=== PATIENT | female | born 1965 | race Two or more races ===

== ENCOUNTER 2024-09-08 15:03 | Emergency (ER) | payer BC, OTHER ==
[~2024-09-08] VITALS: Ht 165.1 cm; Wt 66.6 kg
--- NOTE | 2024-09-08 15:39 | ED.PDOC ---
History of Present Illness HPI Comments 59F presents to the ER w/ the c/c of a fall, N/V, Burning sensation during urination. Pt reports on having a fall on Tuesday and had upper back pain, and saw her PCPand was told that she was okay. Pt states on having N/V since this morning of 2 episodes and lower ABD pain w/ burning sensation during urination. Pt complains of chills and body aches as well. Denies chills, fever, /D, SOB, CP. No other associated symptoms, modifiers, recent injuries or sick contacts present at this time. Vital signs were stable on arrival. Chief Complaint: Abdominal Pain Time Seen by MD: 15:25 Primary Care Provider: NONE Reviewed Notes: Nurses Notes, Medications, Allergies Allergies: Coded Allergies: NO KNOWN ALLERGIES (Unverified , 09/08/24) Information Source: Patient Mode of Arrival: Ambulatory Severity: Moderate Timing: Days Duration: Since onset, Days Prehospital treatment: None Past Medical History PAST MEDICAL HISTORY: Denies Surgical History: Denies all surgeries SCOOP DRIVER History: No Pertinent SCOOP DRIVER History Family History Family History: Reviewed,noncontributory to illness, Unknown Social History Smoker: Non-Smoker Alcohol: Denies ETOH Use Drugs: Denies Drug Use Lives In: Home Constitutional: reports: chills; denies: diaphoresis, fatigue, fever, malaise, sweats, weakness, others EENTM: denies: blurred vision, double vision, ear bleeding, ear discharge, ear drainage, ear pain, ear ringing, eye pain, eye redness, hearing loss, mouth pain, mouth swelling, nasal discharge, nose bleeding, nose congestion, nose pain, photophobia, tearing, throat pain, throat swelling, voice changes, others Respiratory: denies: cough, hemoptysis, orthopnea, SOB at rest, shortness of breath, SOB with excertion, stridor, wheezing, others Cardiovascular: denies: chest pain, dizzy spells, diaphoresis, Dyspnea on exertion, edema, irregular heart beat, left arm pain, lightheadedness, palpitations, PND, syncope, others Gastrointestinal: reports: abdominal pain, nausea, vomiting; denies: abdomen distended, blood streaked bowels, constipated, diarrhea, dysphagia, difficulty swallowing, hematemesis, melena, poor appetite, poor fluid intake, rectal bleeding, rectal pain, others Genitourinary: reports: burning; denies: abnormal vagina bleeding, dyspareunia, dysuria, flank pain, frequency, hematuria, incontinence, pain, , vagina discharge, urgency, others Neurological: denies: dizziness, fainting, headache, left sided numbness, left sided weakness, numbness, paresthesia, pre-existing deficit, right sided numbness, right sided weakness, seizure, speech problems, tingling, tremors, weakness, others Musculoskeletal: denies: back pain, gout, joint pain, joint swelling, muscle pain, muscle stiffness, neck pain, others Integumetry: denies: bruises, change in color, change in hair/nails, dryness, laceration, lesions, lumps, rash, wounds, others Allergic/Immunocompromised: denies: Difficulty Healing, Frequent Infections, Hives, Itching, others Hematologic/Lymphatic: denies: anemia, blood clots, easy bleeding, easy bruising, swollen glands, others Endocrine: denies: excessive hunger, excessive sweating, excessive thirst, excessive urination, flushing, intolerance to cold, intolerance to heat, unexplained weight gain, unexplained weight loss, others Psychiatric: denies: anxiety, bipolar disorder, depression, hopeless, panic disorder, schizophrenia, sleepless, suicidal, others All Other Systems: Reviewed and Negative Physical Exam General Appearance: Moderate Distress ([id number] distress due to urinary discomfort and nausea), Normal HEENT: Normal ENT Inspection, Pharynx Normal, TMs Normal Neck: Full Range of Motion, Non-Tender, Normal, Normal Inspection Respiratory: Chest Non-Tender, Lungs Clear, No Accessory Muscle Use, No Respiratory Distress, Normal Breath Sounds Cardiovascular: No Edema, No JVD, No Murmur, No Gallop, Normal Peripheral Pulses, Regular Rate/Rhythm Breast Exam: Deferred Gastrointestinal: No Pulsatile Mass, Normal Bowel Sounds, Soft, Other (Mild diffuse tenderness to palpation bilaterally through lower abdominal/pelvic region. Mild suprapubic tenderness.) Genitalia: Deferred Pelvic: Deferred Rectal: Deferred Extremities: No calf tenderness, Normal capillary refill, Normal inspection, Normal range of motion, Non-tender, No pedal edema Musculoskeletal : Apperance: Normal Neurologic: Alert, No Motor Deficits, Normal Affect, Normal Mood, No Sensory Deficits Cerebellar Function: Normal Reflexes: Normal Skin: Dry, Normal Color, Warm Lymphatic: No Adenopathy Was a procedure done? Was a procedure done?: No Differential Dx Considerations may include: UTI, COVID-19, influenza, viral illness X-Ray, Labs, Meds, VS Vital Signs Date Time Temp Pulse Resp B/P (MAP) Pulse Ox O2 Delivery O2 Flow Rate FiO2 09/08/24 15:25 98.6 86 18 149/62 (91) 92 98.6 Lab Test 09/08/24 15:23 09/08/24 15:20 Range/Units Influenza Type A Antigen Negative Negative Influenza Type B Antigen Negative Negative SARS-CoV-2 Antigen (Rapid) Negative NEGATIVE Urine Color Colorless Yellow Urine Clarity Turbid H Clear Urine pH 7.0 5.0-9.0 Urine Specific [place] 1.026 1.001-1.035 Urine Protein Negative Negative Urine Ketones Negative Negative Urine Blood Trace H Negative /uL Urine Nitrite Negative Negative Urine Bilirubin Negative Negative Urine Urobilinogen Normal Negative mg/dL Urine Leukocyte Esterase 3+ Negative /uL Urine RBC 4 0 - 4 /hpf Urine Microscopic WBC 164 H 0-5 /HPF Urine Squamous Epithelial Cells Few <5 /hpf Urine Bacteria Few H None Seen /hpf Urine Glucose 4+ H Normal mg/dL X-Ray, Labs, Meds, VS Comment All studies performed at the ED today were evaluated by me personally. Swabs studies were unremarkable for COVID or influenza, but urinalysis confirmed a large urinary tract infection. Patient was given a dose of Cipro at discharge. Patient has been advised to utilize antibiotics as directed until completion as well as additional medication as needed. Good hydration and healthy nutrition throughout. Time of 1ST Reevaluation: 16:39 Reevaluation 1ST: Improved Consultation: PCP Patient Education/Counseling: Diagnosis, Treatment, Prognosis Family Education/Counseling: Diagnosis, Treatment, No Family Present Departure 1 Departure Time of Disposition: 16:39 Impression: Primary Impression: Urinary tract infection Disposition: 01 HOME / SELF CARE / HOMELESS Condition: Stable Additional Instructions: Advised patient utilize antibiotics as directed until completion as well as a dditional medication as needed. Patient should practice good hydration and healthy nutrition throughout illness event. e-Prescriptions Acetaminophen (Acetaminophen) 500 Mg Tab 500 MG PO Q4HP PRN, #20 TAB Prov: HARLAN HAN PAC 09/08/24 Ondansetron Odt 4MG Tab (ZOFRAN PO) 4 Mg Tb 4 MG PO Q6HP PRN, #10 TAB ODT TAB-DISSOLVE IN MOUTH, THEN SWALLOW Prov: HARLAN HAN PAC 09/08/24 Ciprofloxacin Hcl (Cipro) 500 Mg Tab 1 TAB PO BID for 7 Days, #14 TAB Prov: HARLAN HAN PAC 09/08/24 Discharged With: Self, Friend Critical Care Note Critical Care Time?: No Stability Stability form required: No Heart Score Heart Score: Heart Score Response (Comments) Value History N/A 0 EKG N/A 0 Age N/A 0 Risk Factors N/A 0 Troponin N/A 0 Total 0 I personally scribed for HARLAN HAN PAC ([email or web address]) on 09/08/24 at 15:39. Electronically submitted by Grzegorz Capps ([email or web address]). HARLAN HAN PAC Sep 08, 2024 15:39
[2024-09-08 15:53] LABS: Urine Bacteria FEW /hpf (None Seen); Urine Blood TRACE /uL (Negative); Urine Clarity Turbid (Clear); Urine Color Colorless (Yellow); Urine Protein, UAD Negative (Negative); Urine Specific Gravity 1.026 (1.001-1.035); Urine Squamous Epithelial Cell FEW /hpf (<5); Urine Urobilinogen Normal (Negative); Urine WBC 164 /HPF (0-5)
[2024-09-08 15:55] LABS: COVID19 ANTIGEN SOFIA FIA NEGATIVE (NEGATIVE); Rapid Influenza A Negative (Negative); Rapid Influenza B Negative (Negative)
--- NOTE | 2024-09-08 16:12 | DVH ---
CLINICAL INDICATION: Fall/trauma TECHNIQUE: 3 radiographic views of the cervical spine were obtained. Comparison: None FINDINGS/IMPRESSION: There is no evidence of acute fracture or dislocation. The visualized joint space is well maintained. Mild straightening of the normal cervical lordotic curve. This may be secondary to patient positionin g or muscle spasm.. There is no radiopaque foreign body.
[2024-09-08] MEDS: ACETAMINOPHEN 325 MG TAB PO ONE (16:38)
[2024-09-08] MEDS: ONDANSETRON ODT 4 MG TAB PO ONE (16:38)
[2024-09-08] MEDS ORDERED: ZOFR4T PO (16:40)
[2024-09-08] MEDS ORDERED: CIPR-173 PO (16:40)
[2024-09-08] MEDS ORDERED: ACET500T58 PO (16:40)
[2024-09-08 16:42] VITALS: BP 115/68; PULSE 82; RESP 16; TEMP 98.3; O2SAT 95
[2024-09-08] MEDS: CIPROFLOXACIN HCL 500 MG TAB PO ONE (16:46)
== END 2024-09-08 16:54 | disposition home or self-care (01) ==
LOC: ER 15:03
DX: N39.0 Urinary tract infection, site not specified (principal); Z20.822 Contact with and (suspected) exposure to COVID-19
CPT/HCPCS: 36415; 72040; 81001; 87426; 87804; 99284; Q0162

== ENCOUNTER 2024-09-09 12:21 | Inpatient (IN) | payer BC ==
[~2024-09-09] VITALS: Ht 165.1 cm; Wt 70.0 kg
[~2024-09-09 12:21] MED LIST: ACET500T58 PO; CIPR-173 PO; ZOFR4T PO
[2024-09-09] MEDS: SODIUM CHLORIDE 0.9% 1,000 ML IV ONE (12:30)
--- NOTE | 2024-09-09 12:32 | ED.PDOC ---
General HPI Comments 59 y.o female with PMHx of hyperlipidemia and DM, presents to the ED via EMS for a chief complaint of a fever associated with chills, dysuria, nausea, and vomiting that started 3 days ago. EMS reports patient was seen at this ED last night for same complaint and was diagnosed with a UTI and prescribed medication with discharge status. Patient states she started taking medications, symptoms have worsened and now has SOB that started today. Patient denies any hematuria, bloody stool, diarrhea. EMS administrated 200cc mL IVF and 4mg of Zofran en route brining temperature from a 104.3 F to a 99F upon ED arrival. Time Seen by MD: 12:19 Primary Care Provider: n/a Reviewed notes: Nurses Notes, Philanthropy Officer Notes, Medications, Allergies Allergies: Coded Allergies: NO KNOWN ALLERGIES (Unverified , 09/08/24) Home Meds Active Scripts Acetaminophen (Acetaminophen) 500 Mg Tab, 500 MG PO Q4HP PRN, #20 TAB Prov:HARLAN HAN PAC 09/08/24 Ondansetron Odt 4MG Tab (ZOFRAN PO) 4 Mg Tb, 4 MG PO Q6HP PRN, #10 TAB ODT TAB-DISSOLVE IN MOUTH, THEN SWALLOW Prov:HARLAN HAN PAC 09/08/24 Ciprofloxacin Hcl (Cipro) 500 Mg Tab, 1 TAB PO BID for 7 Days, #14 TAB Prov:HARLAN HAN PAC 09/08/24 Information Source: Patient Mode of Arrival: EMS Severity: Moderate Timing: Days (3) Duration: Since onset Onset: Spontaneous Symptoms: Dysuria History of: None Location: None associated signs and symptoms: Fever, Nausea, Vomiting, Dysuria Past Medical History PAST MEDICAL HISTORY: DM, High Lipids Surgical History: Denies all surgeries ADMINISTRATIVE UNDERWRITER History: No Pertinent ADMINISTRATIVE UNDERWRITER History Family History Family History: Reviewed,noncontributory to illness, Unknown Social History Smoker: Non-Smoker Alcohol: Denies ETOH Use Drugs: Denies Drug Use Lives In: Home Constitutional: reports: chills, fever; denies: diaphoresis, fatigue, malaise, sweats, weakness, others EENTM: denies: blurred vision, double vision, ear bleeding, ear discharge, ear drainage, ear pain, ear ringing, eye pain, eye redness, hearing loss, mouth pain, mouth swelling, nasal discharge, nose bleeding, nose congestion, nose pain, photophobia, tearing, throat pain, throat swelling, voice changes, others Respiratory: reports: SOB at rest; denies: cough, hemoptysis, orthopnea, shortness of breath, SOB with excertion, stridor, wheezing, others Cardiovascular: denies: chest pain, dizzy spells, diaphoresis, Dyspnea on exertion, edema, irregular heart beat, left arm pain, lightheadedness, palpitations, PND, syncope, others Gastrointestinal: reports: nausea, vomiting; denies: abdomen distended, abdominal pain, blood streaked bowels, constipated, diarrhea, dysphagia, difficulty swallowing, hematemesis, melena, poor appetite, poor fluid intake, rectal bleeding, rectal pain, others Genitourinary: reports: dysuria; denies: abnormal vagina bleeding, burning, dyspareunia, flank pain, frequency, hematuria, incontinence, pain, , vagina discharge, urgency, others Neurological: denies: dizziness, fainting, headache, left sided numbness, left sided weakness, numbness, paresthesia, pre-existing deficit, right sided numbness, right sided weakness, seizure, speech problems, tingling, tremors, weakness, others Musculoskeletal: denies: back pain, gout, joint pain, joint swelling, muscle pain, muscle stiffness, neck pain, others Integumetry: denies: bruises, change in color, change in hair/nails, dryness, laceration, lesions, lumps, rash, wounds, others Allergic/Immunocompromised: denies: Difficulty Healing, Frequent Infections, Hives, Itching, others Hematologic/Lymphatic: denies: anemia, blood clots, easy bleeding, easy bruising, swollen glands, others Endocrine: denies: excessive hunger, excessive sweating, excessive thirst, excessive urination, flushing, intolerance to cold, intolerance to heat, unexplained weight gain, unexplained weight loss, others Psychiatric: denies: anxiety, bipolar disorder, depression, hopeless, panic disorder, schizophrenia, sleepless, suicidal, others All Other Systems: Reviewed and Negative Physical Exam General Appearance: Moderate Distress HEENT: Normal ENT Inspection, Pharynx Normal, TMs Normal Neck: Full Range of Motion, Non-Tender, Normal, Normal Inspection Respiratory: Chest Non-Tender, Lungs Clear, No Accessory Muscle Use, No Respiratory Distress, Normal Breath Sounds Cardiovascular: No Edema, No JVD, No Murmur, No Gallop, Normal Peripheral Pulses, Regular Rate/Rhythm Breast Exam: Deferred Gastrointestinal: No Organomegaly, No Pulsatile Mass, Normal Bowel Sounds, Soft, Suprapubic, Tenderness Genitalia: Deferred Pelvic: Deferred Rectal: Deferred Extremities: No calf tenderness, Normal capillary refill, Normal inspection, Normal range of motion, Non-tender, No pedal edema Musculoskeletal : Apperance: Normal Neurologic: Alert, laborer shaft sinking II-XII nml as Tested, No Motor Deficits, Normal Affect, Normal Mood, No Sensory Deficits Cerebellar Function: Normal Reflexes: Normal Skin: Dry, Normal Color, Warm Lymphatic: No Adenopathy Was a procedure done? Was a procedure done?: No Differential Diagnosis Kidney stone (Female): N/A Urinary Problem (Female): PID, Pyelonephritis, Urinary retention, Urolithiasis, UTI, Vaginitis X-Ray, Labs, Meds, VS Vital Signs Date Time Temp Pulse Resp B/P (MAP) Pulse Ox O2 Delivery O2 Flow Rate FiO2 09/09/24 12:42 99.9 91 20 117/72 (87) 99 99.9 Lab Test 09/09/24 12:45 Range/Units White Blood Count 8.2 4.4-10.8 10^3/uL Red Blood Count 4.43 4.0-5.20 10^6/uL Hemoglobin 14.0 12.2-16.2 g/dL Hematocrit 40.6 36.0-46.0 % Mean Corpuscular Volume 91.7 80.0-100.0 fL Mean Corpuscular Hemoglobin 31.7 28.0-32.0 pg Mean Corpuscular Hemoglobin Concent 34.5 32.0-36.0 g/dL Red Cell Distribution Width 12.6 11.8-14.3 % Platelet Count 179 140-450 10^3/uL Mean Platelet Volume 7.4 6.9-10.8 fL Neutrophils (%) (Auto) 90.6 H 37.0-80.0 % Lymphocytes (%) (Auto) 2.6 L 10.0-50.0 % Monocytes (%) (Auto) 6.5 0.0-12.0 % Eosinophils (%) (Auto) 0.0 0.0-7.0 % Basophils (%) (Auto) 0.3 0.0-2.0 % Neutrophils # (Auto) 7.4 1.6-8.6 10 ^3/uL Lymphocytes # (Auto) 0.2 L 0.4-5.4 10 ^3/uL Monocytes # (Auto) 0.5 0-1.3 10 ^3/uL Eosinophils # (Auto) 0 0-0.8 10 ^3/uL Basophils # (Auto) 0 0-0.2 10 ^3/uL Nucleated Red Blood Cells 0.0 % Sodium Level 138 136-145 mmol/L Potassium Level 3.5 3.5-5.1 mmol/L Chloride Level 101 98-107 mmol/L Carbon Dioxide Level 23 20-31 mmol/L Anion Gap 14 5-15 Blood Urea Nitrogen 17 9-23 mg/dL Creatinine 0.79 0.550-1.02 mg/dL Glomerular Filtration Rate Calc 86 >90 mL/min BUN/Creatinine Ratio 21.5 H 10.0-20.0 Serum Glucose 156 H 74-106 mg/dL Lactic Acid Level 2.0 0.4-2.0 mmol/L Calcium Level 9.1 8.7-10.4 mg/dL IV Hep-Lock was established The patient was given a 1 L bolus of normal saline The CBC and chemistry panel are within normal limits The lactic acid level is within normal limits The patient is diagnosed with a UTI The patient's temperature has come down The patient is being admitted secondary to the persistent fever and UTI Time of 1ST Reevaluation: 12:32 Reevaluation 1ST: Unchanged Patient Education/Counseling: Diagnosis, Treatment, Prognosis Family Education/Counseling: No Family Present Sepsis Sepsis Reasesment Focused Exam Orders: Laboratory Tests 09/09/24 12:45: Lactic Acid Level 2.0 Departure 1 Departure Time of Disposition: 13:53 Impression: Primary Impression: Intractable abdominal pain Additional Impression: UTI (urinary tract infection) Qualified Codes: N30.00 - Acute cystitis without hematuria Disposition: ADMITTED INPATIENT Admit to: Med Surg Condition: Fair Critical Care Note Critical Care Time?: No Stability Stability form required: Yes Unstable for transfer: ED Physician Assesment (Clinical assesment) I personally scribed for OANH SHABAZZ MD ([email or web address]) on 09/09/24 at 12:32. Electronically submitted by Meghan Ramirez ([facility]). OANH SHABAZZ MD Sep 09, 2024 12:32
[2024-09-09 13:17] LABS: Basophils # (auto) 0 10 ^3/uL (0-0.2); Basophils % (auto) 0.3 % (0.0-2.0); Eosinophils # (auto) 0 10 ^3/uL (0-0.8); Hematocrit 40.6 % (36.0-46.0); Lymphocytes # (auto) 0.2 10 ^3/uL (0.4-5.4); Lymphocytes % (auto) 2.6 % (10.0-50.0); Mean Corpuscular Hemoglobin 31.7 pg (28.0-32.0); Mean Corpuscular Hgb Conc. 34.5 g/dL (32.0-36.0); Mean Corpuscular Volume 91.7 fL (80.0-100.0); Monocytes # (auto) 0.5 10 ^3/uL (0-1.3); Monocytes % (auto) 6.5 % (0.0-12.0); Neutrophils # (auto) 7.4 10 ^3/uL (1.6-8.6); Neutrophils % (auto) 90.6 % (37.0-80.0); Platelet Count (auto) 179 10^3/uL (140-450); Red Blood Cells 4.43 10^6/uL (4.0-5.20); Red Cell Distribution Width 12.6 % (11.8-14.3); White Blood Cell 8.2 10^3/uL (4.4-10.8)
[2024-09-09 13:24] LABS: Anion Gap 14 (5-15); Carbon Dioxide 23 mmol/L (20-31); Chloride 101 mmol/L (98-107); Potassium 3.5 mmol/L (3.5-5.1); Sodium 138 mmol/L (136-145)
[2024-09-09 13:25] LABS: Calcium 9.1 mg/dL (8.7-10.4)
[2024-09-09 13:30] LABS: BUN/Creatinine Ratio 21.5 (10.0-20.0); Blood Urea Nitrogen 17 mg/dL (9-23); Glucose 156 mg/dL (74-106)
--- NOTE | 2024-09-09 14:43 | DVHHP2 ---
History of Present Illness Reason for Visit: Burning with urination fevers chills dysuria History of Present Illness 59-year-old female past medical history hyperlipidemia diabetes denies surgical history chief complaint patient states last week she fell down and she landed on her neck that was on Tuesday she went to outside hospital had imaging done there was no fracture but she has continued to have some pain there and then she also states that for four days she has been having cold muscle aches fever she vomiting for four days no blood no diarrhea she stated she came here last night they did a urine that shows she has a urinary tract infection reviewed the chart looks like she was sent home with Cipro patient states that she has been voiding lot she is having a lot of burning with urination but no blood she does complain of lower pelvic pain there was no vaginal discharge or odor bleeding patient had a fever T-max 104.3 in the ED when evaluating patient's labs and imaging from ED CBC was unremarkable CMP unremarkable lactate was negative UA still pending normal saline was given we will admit patient for pyelonephritis give ceftriaxone COVID influenza we will be order urine culture blood cultures x2 and I will add a CT scan of the abdomen pelvis proceed underlying issue. Past Medical History See HPI above Past Surgical History See HPI above Family History Reviewed, non-contributory to the management of this case. Past Social History The patient lives at home, denies smoking, alcohol or illicit drugs abuse. Review of Systems Constitutional: Yes: Fever, Chills, Weakness, Malaise; No: Sweats, Other Eyes: No: Pain, Vision change, Conjunctivae inflammation, Eyelid inflammation, Other, Redness ENT: No: Ear pain, Ear discharge, Nose pain, Nose discharge, Nose congestion, Mouth pain, Mouth swelling, Throat pain, Throat swelling, Other Respiratory: No: Cough, Dry, Shortness of breath, SOB with excertion, Wheezing, Hemoptysis, Pleuritic Pain, Sputum, Wheezing, Other Cardiovascular: No: Chest Pain, Palpitations, Orthopnea, Paroxysmal Noc. Dyspnea, Edema, Lt Headedness, Other Gastrointestinal: Abdominal Pain; No: Nausea, Vomiting, Diarrhea, Constipation, Melena, Hematochezia, Other Genitourinary: Dysuria; No Frequency, No Incontinence, No Hematuria, No Retention, No Other Musculoskeletal: No: other, neck pain, shoulder pain, arm pain, back pain, hand pain, leg pain, foot pain Skin: No: Rash, Lesions, Jaundice, Bruising, Other Neurological: No: Weakness, Numbness, Incoordination, Change in speech, Confusion, Seizures, Other Allergies: Coded Allergies: NO KNOWN ALLERGIES (Unverified , 09/08/24) Exam Vital Signs Vital Signs Date Time Temp Pulse Resp B/P (MAP) Pulse Ox O2 Delivery O2 Flow Rate FiO2 09/09/24 13:57 98.4 61 16 144/101 (115) 94 98.4 09/09/24 13:56 Room Air General Appearance: Alert, Oriented X3, Cooperative, No acute distress HEENT: Atraumatic, PERRLA, EOMI, Mucous membr. moist/pink Respiratory: Clear to auscultation, Normal air movement Cardiovascular: Regular rate, Normal S1, Normal S2, No murmurs Abdominal: Normal bowel sounds, Soft, No tenderness, No hepatospenomegaly, No masses, Other (Pelvic tenderness) Extremities: No clubbing, No cyanosis, No edema, Normal pulses, No tenderness/swelling Skin: No rashes, No breakdown, No significant lesion Neuro: Normal gait, Normal speech, Strength at 5/5 X4 ext, Normal tone, Sensation intact, Cranial nerves 3-12 NL Psych/Mental Status: Mental status NL, Mood NL Labs/Xrays I reviewed labs, imaging CT scan abdomen pelvis, EKG and all diagnostic studies on this patient from ED records and the medical chart Labs Test 09/09/24 12:45 Range/Units White Blood Count 8.2 4.4-10.8 10^3/uL Red Blood Count 4.43 4.0-5.20 10^6/uL Hemoglobin 14.0 12.2-16.2 g/dL Hematocrit 40.6 36.0-46.0 % Mean Corpuscular Volume 91.7 80.0-100.0 fL Mean Corpuscular Hemoglobin 31.7 28.0-32.0 pg Mean Corpuscular Hemoglobin Concent 34.5 32.0-36.0 g/dL Red Cell Distribution Width 12.6 11.8-14.3 % Platelet Count 179 140-450 10^3/uL Mean Platelet Volume 7.4 6.9-10.8 fL Neutrophils (%) (Auto) 90.6 H 37.0-80.0 % Lymphocytes (%) (Auto) 2.6 L 10.0-50.0 % Monocytes (%) (Auto) 6.5 0.0-12.0 % Eosinophils (%) (Auto) 0.0 0.0-7.0 % Basophils (%) (Auto) 0.3 0.0-2.0 % Neutrophils # (Auto) 7.4 1.6-8.6 10 ^3/uL Lymphocytes # (Auto) 0.2 L 0.4-5.4 10 ^3/uL Monocytes # (Auto) 0.5 0-1.3 10 ^3/uL Eosinophils # (Auto) 0 0-0.8 10 ^3/uL Basophils # (Auto) 0 0-0.2 10 ^3/uL Nucleated Red Blood Cells 0.0 % Sodium Level 138 136-145 mmol/L Potassium Level 3.5 3.5-5.1 mmol/L Chloride Level 101 98-107 mmol/L Carbon Dioxide Level 23 20-31 mmol/L Anion Gap 14 5-15 Blood Urea Nitrogen 17 9-23 mg/dL Creatinine 0.79 0.550-1.02 mg/dL Glomerular Filtration Rate Calc 86 >90 mL/min BUN/Creatinine Ratio 21.5 H 10.0-20.0 Serum Glucose 156 H 74-106 mg/dL Lactic Acid Level 2.0 0.4-2.0 mmol/L Calcium Level 9.1 8.7-10.4 mg/dL Assessment/Plan Assessment/Plan acute pyelonephritis orderd ct scan abd and pelvis fu results ordered ua ordered urine culture fu results ordered ceftriaxone for now ordered ivf strict i/o's ordered morphine as needed for pain acute fever likely urine ordered ceftriaxone ordered blood culture fu results ordered urine culture ordered urine acute vomiting/nausea ordered iv for now ordered zofran prn nausea Acute neck pain status post fall Patient had imaging done outpatient was negative Lidocaine patch for now acute dehydration ordered iv hydration for now chronic problems DM fen/ppx diet ivf no gi ppx since no hx of gerds or gi bleed scd plan admit to medicine for iv hydration and antibotics Plan discussed with: Patient Date of Service: Sep 09, 2024 Billing Provider: ROSEMARY COLINDRES DNP Common Visit Codes: [id number] INP/OBS CARE (HIGH) ROSEMARY COLINDRES DNP Sep 09, 2024 14:43
[2024-09-09] MEDS ORDERED: ONDANSETRON HCL 4 MG/2 ML VIAL IV PRN (16:15)
[2024-09-09] MEDS ORDERED: NITROGLYCERIN 0.4 MG SL TAB SL PRN (16:15)
[2024-09-09] MEDS ORDERED: DOCUSATE SOD 100 MG CAP PO PRN (16:15)
[2024-09-09] MEDS ORDERED: MORPHINE SULFATE INJ 2 MG/ml SYRG IV PRN (16:15)
--- NOTE | 2024-09-09 17:46 | DVH ---
Exam: CT CT AB PEL WO CON-NO ORAL OR IV History: acute abd pain with pyelo Comparison Study: None TECHNIQUE: Multidetector CT of the abdomen and pelvis without IV contrast. Axial, coronal and sagitta l multiplanar reformats were obtained from the axial data set by the technologist. Radiation Dose Information: CT Dose: CTDI volume is 10.76 mGy. Dose-length product is 590.89 mGy*cm FINDINGS: Mild ground-glass opacity of the lung bases with mild cardiomegaly which may be from pulmonary edema. Liver, spleen, pancreas and adrenal glands unremarkable. Gallbladder is partially contracted and dem onstrates mild wall thickening . No CT evidence of cholelithiasis Mild nonspecific bilateral perirenal fat stranding. Otherwise, kidneys, and ureters unremarkable. Wheeler ited evaluation of the urinary bladder due to decompressed state. Uterus is unremarkable. 1.1 cm calc ification of the left adnexa. Stomach is unremarkable. Small bowel loops unremarkable. Appendix is unremarkable. Moderate amount of fecal material within the colon. No evidence of intraperitoneal free air or free fluid. No evidence of aortic aneurysm. No significant lymphadenopathy. Bilateral breast implants. Mild fat stranding over the ventral upper abdominal bilateral posterolater al subcutaneous fat. No destructive osseous lesions are noted. Sclerotic focus of the left L2 cortex and left inferior L4 which may represent bone islands with blastic lesions not excluded. IMPRESSION: Mild wall thickening of the gallbladder which is most likely from decompressed state. No CT evidence of cholelithiasis. Right upper quadrant ultrasound may be considered for further evaluation if clini howie indicated. Moderate amount of fecal material within the colon.
[2024-09-09] MEDS: SODIUM CHLORIDE 0.9% 1,000 ML IV SCH (19:10)
[2024-09-09] MEDS: cefTRIAXone 1GM/50ML D5W 50 ML IV ONE (19:16)
[2024-09-09] MEDS: LIDOCAINE 5% TOPICAL PATCH TOP ONE (19:16)
[2024-09-09 19:30] LABS: COVID19 ANTIGEN SOFIA FIA NEGATIVE (NEGATIVE)
[2024-09-09 19:31] LABS: Rapid Influenza A Negative (Negative); Rapid Influenza B Negative (Negative)
[2024-09-09 23:30] VITALS: BP 123/54; PULSE 86; RESP 16; TEMP 98.4; O2SAT 95
[2024-09-10 01:00] VITALS: BP 119/56; PULSE 78; RESP 16; TEMP 98.1; O2SAT 94
[2024-09-10 05:00] VITALS: BP 113/49; PULSE 77; RESP 16; TEMP 100; O2SAT 92
[2024-09-10 08:06] LABS: Basophils # (auto) 0 10 ^3/uL (0-0.2); Basophils % (auto) 0.4 % (0.0-2.0); Eosinophils # (auto) 0 10 ^3/uL (0-0.8); Eosinophils % (auto) 0.1 % (0.0-7.0); Hematocrit 37.2 % (36.0-46.0); Hemoglobin 12.9 g/dL (12.2-16.2); Lymphocytes # (auto) 0.5 10 ^3/uL (0.4-5.4); Lymphocytes % (auto) 6.8 % (10.0-50.0); Mean Corpuscular Hemoglobin 31.5 pg (28.0-32.0); Mean Corpuscular Hgb Conc. 34.6 g/dL (32.0-36.0); Mean Corpuscular Volume 91.1 fL (80.0-100.0); Monocytes # (auto) 0.7 10 ^3/uL (0-1.3); Monocytes % (auto) 10.6 % (0.0-12.0); Neutrophils # (auto) 5.6 10 ^3/uL (1.6-8.6); Neutrophils % (auto) 82.1 % (37.0-80.0); Platelet Count (auto) 189 10^3/uL (140-450); Red Blood Cells 4.09 10^6/uL (4.0-5.20); Red Cell Distribution Width 12.4 % (11.8-14.3); White Blood Cell 6.8 10^3/uL (4.4-10.8)
[2024-09-10 08:25] LABS: Alanine Aminotransferase 13 U/L (7-40); Alkaline Phosphatase 84 U/L (46-116); Anion Gap 11 (5-15); Aspartate Aminotransferase 16 U/L (<34); BUN/Creatinine Ratio 21.1 (10.0-20.0); Blood Urea Nitrogen 12 mg/dL (9-23); Calcium 9.5 mg/dL (8.7-10.4); Carbon Dioxide 22 mmol/L (20-31); Chloride 106 mmol/L (98-107); Potassium 4.1 mmol/L (3.5-5.1); Sodium 139 mmol/L (136-145); Total Protein 6.4 g/dL (5.7-8.2)
[2024-09-10 08:26] LABS: Bilirubin, Total 0.6 mg/dL (0.2-1.0)
[2024-09-10 08:32] LABS: Glucose 150 mg/dL (74-106)
[2024-09-10 09:00] VITALS: BP 104/55; PULSE 72; RESP 18; TEMP 99.2; O2SAT 92
[2024-09-10] MEDS: cefTRIAXone 1GM/50ML D5W 50 ML IV SCH (09:07)
[2024-09-10] MEDS: LIDOCAINE 5% TOPICAL PATCH TOP SCH (10:03)
[2024-09-10 13:00] VITALS: BP 110/53; PULSE 75; RESP 18; TEMP 98.5; O2SAT 94
--- NOTE | 2024-09-10 15:07 | DVHPN2 ---
Subjective Patient continues to have neck pain as chief complaint. Dysuria is improving. Reviewed: H&P Changes from previous H/P or p: No Changes General: Per HPI Eyes: No Pain, No Vision change, No Conjunctivae inflammation, No Eyelid inflammation, No Other, No Redness ENT: No Ear pain, No Ear discharge, No Nose pain, No Nose discharge, No Nose congestion, No Mouth pain, No Mouth swelling, No Throat pain, No Throat swelling, No Other Cardiovascular: No Chest Pain, No Palpitations, No Orthopnea, No Paroxysmal Noc. Dyspnea, No Edema, No Lt Headedness, No Other Respiratory: No Cough, No Dry, No Shortness of breath, No SOB with excertion, No Wheezing, No Hemoptysis, No Pleuritic Pain, No Sputum, No Other Gastrointestinal: No Nausea, No Vomiting; Abdominal Pain; No Diarrhea, No Constipation, No Melena, No Hematochezia, No Other Genitourinary: Dysuria; No Frequency, No Incontinence, No Hematuria, No Retention, No Other Musculoskeletal: No other, No neck pain, No shoulder pain, No arm pain, No back pain, No hand pain, No leg pain, No foot pain Skin: No Rash, No Lesions, No Jaundice, No Bruising, No Other Objective Vitals Vital Signs Date Time Temp Pulse Resp B/P (MAP) Pulse Ox O2 Delivery O2 Flow Rate FiO2 09/10/24 13:00 98.5 75 18 110/53 (72) 94 98.5 09/10/24 08:00 Room Air* 0 21 Intake/Output Intake and Output 09/10/24 07:00 Intake Total 250 ml Output Total 500 ml Balance -250 ml Intake Oral 250 ml Output Urine Total 500 ml # Bowel Movements 1 Exam GEN: Healthy appearing, well-developed, NAD. HEENT: NC/AT; MMM. CV: RRR, no m/r/g. LUNGS: CTAB, no w/r/c. ABD: Soft, NT/ND, NBS, no masses or organomegaly. EXT: skin Warm, well perfused. no rashes. No clubbing, cyanosis, or edema. P araspinal tenderness in upper lumbar and cervical regions. No cervical impingement signs. NEURO: Ambulating with no limitations. No focal deficits. Medications Current Medications Medications Dose Ordered Sig/Stephon Route Start Time Stop Time Status Last Admin Dose Admin Ceftriaxone Sodium 50 ml @ 100 mls/hr DAILY@09 IV 09/10/24 09:00 09/10/24 09:07 100 MLS/HR Lidocaine 1 patch DAILY TOP 09/10/24 10:00 09/10/24 10:03 1 PATCH Sodium Chloride 1,000 ml @ 120 mls/hr Q8H20M IV 09/09/24 16:15 09/10/24 09:07 120 MLS/HR Ondansetron HCl 4 mg Q4HP PRN IV 09/09/24 16:15 Docusate Sodium 100 mg BIDPRN PRN PO 09/09/24 16:15 Morphine Sulfate 2 mg Q4HPRN PRN IV 09/09/24 16:15 Nitroglycerin 0.4 mg Q5MINP PRN SL 09/09/24 16:15 Cyclobenzaprine HCl 10 mg HS PO 09/10/24 22:00 UNV Laboratory Results Laboratory Tests 09/10/24 06:20 Chemistry Test 09/10/24 06:20 Albumin 4.0 g/dL (3.2-4.8) Calcium Level 9.5 mg/dL (8.7-10.4) Total Protein 6.4 g/dL (5.7-8.2) LFT Test 09/10/24 06:20 Alanine Aminotransferase (ALT) 13 U/L (7-40) Alkaline Phosphatase 84 U/L (46-116) Aspartate Amino Transferase (AST) 16 U/L (<34) Total Bilirubin 0.6 mg/dL (0.2-1.0) Microbiology Microbiology Date/Time Source Procedure Growth Status 09/09/24 19:29 Voided Urine Urine Culture - Preliminary Resulted 09/09/24 12:45 Blood Blood Culture - Preliminary NO GROWTH AFTER 24 HOURS OF INCUBATION. Resulted Labs and/or images reviewed: Labs reviewed by me, Image(s) reviewed by me Assessment/Plan Assessment/Plan 09/10 patient continues to have neck pain. Continues to have dysuria. Today there is no CVA tenderness. She describes "convulsions", but there is no loss of consciousness. IP possible these are rigors/chills. No more febrile episodes. Chief complaint remains neck pain. We will ruled out cervical impingement. Continue antibiotics. Pending urine culture. Pyelonephritis Sepsis due to above Tachypnea Tachycardia Febrile episodes Status post neck trauma Neck pain likely musculoskeletal Chills IV antibiotics Pending urine culture Trial muscle relaxants Continue prn pain control and antipyretics -diet regular DVT prophylaxis-ambulating GI prophylaxis tolerating p.o. Med surge Full code Plan discussed with: Patient My Orders Orders - LOVE ORO MD Procedure Category Date Status Time Urinalysis LAB 09/10/24 Uncollected 12:02 Baclofen Tablet PHA 09/10/24 Logged (Liorisal Tablet) 15:15 Cyclobenzaprine PHA 09/10/24 Logged Tablet (Flexeril 22:[address] 09/10/24 Logged Contrast 15:01 Date of Service: Sep 10, 2024 Billing Provider: LOVE ORO MD Common Visit Codes: [id number] INP/OBS CARE(HIGH) LOVE ORO MD Sep 10, 2024 15:07
[2024-09-10] MEDS: BACLOFEN 10 MG TAB PO ONE (15:15)
[2024-09-10 17:00] VITALS: BP 111/52; PULSE 70; RESP 16; TEMP 99.7; O2SAT 94
[2024-09-10] MEDS ORDERED: DEXTROSE (50%) 50ML SYRG IV PRN (18:15)
[2024-09-10 21:00] VITALS: BP 117/73; PULSE 74; RESP 18; TEMP 97.7; O2SAT 90
[2024-09-10] MEDS: CYCLOBENZAPRINE HCL 10 MG TAB PO SCH (21:32)
[2024-09-10] MEDS: ACCU-CHEK COMFORT CURVE STRIP VI SCH (21:32)
[2024-09-10] MEDS: InsuLIN REG 1unit/0.01ml Soln (100units/ml) SC SCH (21:44)
--- NOTE | 2024-09-11 00:08 | DVH ---
COMPUTERIZED TOMOGRAPHY OF THE CERVICAL SPINE, NONCONTRAST REASON FOR EXAM: cervical impingement COMPARISON: None TECHNIQUE: CT of the entire cervical spine was performed in routine fashion with sagittal and miranda l reconstructions. Soft tissues and bone windows were filmed. Automated exposure control was used. RADIATION DOSE: CTDI: 21 mGy DLP: 614 mGy-cm FINDINGS: The vertebral bodies are normal in height and alignment with no evidence of fracture. Ther e is straightening of the normal cervical lordosis which may be secondary to patient positioning or m uscular spasm. There is no listhesis. There is mild disc height loss throughout the cervical spine. There is moderate disc height loss with endplate hypertrophy at C7-T1 and T1-T2. There are central di sc osteophyte complexes at C4-C5 and C5-C6 which cause mild spinal canal narrowing and May abut the a nterior cord. There is no osseous neural foraminal narrowing identified. No cervical lymphadenopathy is identified. The visualized thyroid gland is unremarkable. The visualized lung apices are unremar kable. IMPRESSION: At least mild spinal canal narrowing at C4-C5 and C5-C6 secondary to central disc osteophyte complexe s. No significant bony neural foraminal narrowing. Further evaluation with cervical spine MRI is recommended if there is concern for impingement or cord compression.
[2024-09-11 01:27] LABS: Urine Bacteria None Seen /hpf (None Seen)
[2024-09-11 01:41] LABS: Urine Blood Negative /uL (Negative); Urine Clarity Clear (Clear); Urine Color Light-Yellow (Yellow); Urine Protein, UAD Negative (Negative); Urine Specific Gravity 1.022 (1.001-1.035); Urine Squamous Epithelial Cell FEW /hpf (<5); Urine Urobilinogen Normal (Negative); Urine WBC 7 /HPF (0-5); Urine pH 6.5 (5.0-9.0)
[2024-09-11 05:00] VITALS: BP 124/68; PULSE 71; RESP 18; TEMP 98.7; O2SAT 96
[2024-09-11 07:23] LABS: Basophils # (auto) 0 10 ^3/uL (0-0.2); Basophils % (auto) 0.4 % (0.0-2.0); Eosinophils # (auto) 0 10 ^3/uL (0-0.8); Eosinophils % (auto) 0.2 % (0.0-7.0); Hematocrit 37.3 % (36.0-46.0); Hemoglobin 12.9 g/dL (12.2-16.2); Lymphocytes # (auto) 0.7 10 ^3/uL (0.4-5.4); Lymphocytes % (auto) 11.2 % (10.0-50.0); Mean Corpuscular Hemoglobin 31.5 pg (28.0-32.0); Mean Corpuscular Hgb Conc. 34.7 g/dL (32.0-36.0); Mean Corpuscular Volume 90.8 fL (80.0-100.0); Monocytes # (auto) 0.7 10 ^3/uL (0-1.3); Monocytes % (auto) 11.9 % (0.0-12.0); Neutrophils # (auto) 4.6 10 ^3/uL (1.6-8.6); Neutrophils % (auto) 76.3 % (37.0-80.0); Nucleated Red Blood Cells % 0.1 %; Platelet Count (auto) 180 10^3/uL (140-450); Red Blood Cells 4.11 10^6/uL (4.0-5.20); Red Cell Distribution Width 12.6 % (11.8-14.3)
[2024-09-11 07:36] LABS: Alanine Aminotransferase 16 U/L (7-40); Albumin 3.8 g/dL (3.2-4.8); Alkaline Phosphatase 87 U/L (46-116); Anion Gap 12 (5-15); Aspartate Aminotransferase 17 U/L (<34); BUN/Creatinine Ratio 20.4 (10.0-20.0); Blood Urea Nitrogen 11 mg/dL (9-23); Carbon Dioxide 21 mmol/L (20-31); Chloride 103 mmol/L (98-107); Potassium 3.6 mmol/L (3.5-5.1); Total Protein 6.2 g/dL (5.7-8.2)
[2024-09-11 07:37] LABS: Bilirubin, Total 0.6 mg/dL (0.2-1.0)
[2024-09-11 07:40] LABS: Calcium 8.6 mg/dL (8.7-10.4); Glucose 189 mg/dL (74-106); Sodium 136 mmol/L (136-145)
[2024-09-11 08:01] VITALS: PULSE 66; RESP 16; O2SAT 98
[2024-09-11 09:00] VITALS: BP 111/56; PULSE 66; RESP 16; TEMP 98.4; O2SAT 98
--- NOTE | 2024-09-11 09:49 | DVHPN2 ---
Subjective Patient continues to have neck pain as chief complaint. Dysuria is improving. Reviewed: H&P Changes from previous H/P or p: No Changes General: Per HPI Eyes: No Pain, No Vision change, No Conjunctivae inflammation, No Eyelid inflammation, No Other, No Redness ENT: No Ear pain, No Ear discharge, No Nose pain, No Nose discharge, No Nose congestion, No Mouth pain, No Mouth swelling, No Throat pain, No Throat swelling, No Other Cardiovascular: No Chest Pain, No Palpitations, No Orthopnea, No Paroxysmal Noc. Dyspnea, No Edema, No Lt Headedness, No Other Respiratory: No Cough, No Dry, No Shortness of breath, No SOB with excertion, No Wheezing, No Hemoptysis, No Pleuritic Pain, No Sputum, No Other Gastrointestinal: No Nausea, No Vomiting; Abdominal Pain; No Diarrhea, No Constipation, No Melena, No Hematochezia, No Other Genitourinary: Dysuria; No Frequency, No Incontinence, No Hematuria, No Retention, No Other Musculoskeletal: No other, No neck pain, No shoulder pain, No arm pain, No back pain, No hand pain, No leg pain, No foot pain Skin: No Rash, No Lesions, No Jaundice, No Bruising, No Other Objective Vitals Vital Signs Date Time Temp Pulse Resp B/P (MAP) Pulse Ox O2 Delivery O2 Flow Rate FiO2 09/11/24 05:00 98.7 71 18 124/68 (86) 96 98.7 09/10/24 20:00 Room Air* 0 21 Intake/Output Intake and Output 09/11/24 07:00 Intake Total 1800 ml Balance 1800 ml Intake Oral 800 ml IV Total 1000 ml # Voids 8 # Bowel Movements 1 Exam GEN: Healthy appearing, well-developed, NAD. HEENT: NC/AT; MMM. CV: RRR, no m/r/g. LUNGS: CTAB, no w/r/c. ABD: Soft, NT/ND, NBS, no masses or organomegaly. EXT: skin Warm, well perfused. no rashes. No clubbing, cyanosis, or edema. P araspinal tenderness in upper lumbar and cervical regions. No cervical impingement signs. NEURO: Ambulating with no limitations. No focal deficits. Medications Current Medications Medications Dose Ordered Sig/Stephon Route Start Time Stop Time Status Last Admin Dose Admin Ceftriaxone Sodium 50 ml @ 100 mls/hr DAILY@09 IV 09/10/24 09:00 09/11/24 08:01 100 MLS/HR Lidocaine 1 patch DAILY TOP 09/10/24 10:00 09/10/24 10:03 1 PATCH Sodium Chloride 1,000 ml @ 120 mls/hr Q8H20M IV 09/09/24 16:15 09/11/24 06:35 120 MLS/HR Ondansetron HCl 4 mg Q4HP PRN IV 09/09/24 16:15 Docusate Sodium 100 mg BIDPRN PRN PO 09/09/24 16:15 Morphine Sulfate 2 mg Q4HPRN PRN IV 09/09/24 16:15 Nitroglycerin 0.4 mg Q5MINP PRN SL 09/09/24 16:15 Cyclobenzaprine HCl 10 mg HS PO 09/10/24 22:00 09/10/24 21:32 10 MG Diagnostic Test (Pha) 1 strip ACHS 09/10/24 22:00 09/11/24 06:35 1 STRIP Insulin Human Regular ACHS SC 09/10/24 22:00 09/11/24 06:45 4 UNITS Dextrose 50 ml PRN PRN IV 09/10/24 18:15 Laboratory Results Laboratory Tests 09/11/24 04:54 Chemistry Test 09/11/24 04:54 Albumin 3.8 g/dL (3.2-4.8) Calcium Level 8.6 mg/dL (8.7-10.4) L Total Protein 6.2 g/dL (5.7-8.2) LFT Test 09/11/24 04:54 Alanine Aminotransferase (ALT) 16 U/L (7-40) Alkaline Phosphatase 87 U/L (46-116) Aspartate Amino Transferase (AST) 17 U/L (<34) Total Bilirubin 0.6 mg/dL (0.2-1.0) HgA1c, TSH Test 09/11/24 04:54 Hemoglobin A1c Pending Urinalysis Test 09/11/24 00:37 Urine Color Light-yellow (Yellow) Urine Clarity Clear (Clear) Urine pH 6.5 (5.0-9.0) Urine Specific [place] 1.022 (1.001-1.035) Urine Protein Negative (Negative) Urine Ketones Negative (Negative) Urine Blood Negative /uL (Negative) Urine Nitrite Negative (Negative) Urine Bilirubin Negative (Negative) Urine Urobilinogen Normal mg/dL (Negative) Urine Leukocyte Esterase Negative /uL (Negative) Urine RBC 8 /hpf (0 - 4) Urine Microscopic WBC 7 /HPF (0-5) H Urine Squamous Epithelial Cells Few /hpf (<5) Urine Bacteria None seen /hpf (None Seen) Urine Glucose 4+ mg/dL (Normal) H Microbiology Microbiology Date/Time Source Procedure Growth Status 09/09/24 19:29 Voided Urine Urine Culture - Preliminary Resulted 09/09/24 12:45 Blood Blood Culture - Preliminary NO GROWTH AFTER 24 HOURS OF INCUBATION. Resulted Labs and/or images reviewed: Labs reviewed by me, Image(s) reviewed by me Assessment/Plan Assessment/Plan 09/10 patient continues to have neck pain. Continues to have dysuria. Today there is no CVA tenderness. She describes "convulsions", but there is no loss of consciousness. IP possible these are rigors/chills. No more febrile episodes. Chief complaint remains neck pain. We will ruled out cervical impingement. Continue antibiotics. Pending urine culture. 09/11 had another low-grade fever overnight. May need to advance antibiotics. Pending urine culture today. Currently on ceftriaxone. Neck pain is better with antispasmodic muscle relaxants, further proving this pain in the neck is likely musculoskeletal and CT cervical spine again without any fractures causing impingement. We will hold off any further imaging. Focused today is pyelonephritis pending urine culture. Pyelonephritis Sepsis due to above Ruled out cervical spinal fractures or disc dislocation syndromes Tachypnea Tachycardia Febrile episodes Status post neck trauma Neck pain likely musculoskeletal Chills -IV antibiotics -Pending urine culture -Trial muscle relaxants -Continue prn pain control and antipyretics -diet regular DVT prophylaxis-ambulating GI prophylaxis tolerating p.o. Med surge Full code Plan discussed with: Patient My Orders Orders - LOVE ORO MD Procedure Category Date Status Time Cyclobenzaprine PHA 09/10/24 In Process Tablet (Flexeril 22:[address] 09/10/24 Resulted Contrast 15:01 Covid19 Antigen Pia LAB 09/10/24 Logged Rapid Influenza A&B LAB 09/10/24 Logged 18:11 Glucose Blood PHA 09/10/24 In Process (Accu-Chek Comfort 22:00 Insulin R (Human) PHA 09/10/24 In Process (Insulin R) 22:00 Dextrose 50% Syringe PHA 09/10/24 In Process 18:15 Hemoglobin A1c LAB 09/11/24 In Process 09:22 Date of Service: Sep 11, 2024 Billing Provider: LOVE ORO MD Common Visit Codes: [id number] INP/OBS CARE(HIGH) LOVE ORO MD Sep 11, 2024 09:49
[2024-09-11 13:00] VITALS: BP 110/56; PULSE 67; RESP 18; TEMP 99.1; O2SAT 93
[2024-09-11] MEDS: PHENAZOPYRIDINE HCL 100 MG TAB PO ONE (16:15)
[2024-09-11 17:00] VITALS: BP 124/65; PULSE 75; RESP 18; TEMP 98.3; O2SAT 95
[2024-09-11 21:00] VITALS: BP 118/66; PULSE 67; RESP 17; TEMP 99; O2SAT 95
[2024-09-11] MEDS: PHENAZOPYRIDINE HCL 100 MG TAB PO SCH (21:25)
[2024-09-12] VITALS (7 sets, daily range): BP systolic 107–123; BP diastolic 53–74; PULSE 61–79; RESP 17–19; TEMP 97.9–98.5; O2SAT 95–99
--- NOTE | 2024-09-12 10:36 | DVHDS2 ---
Discharge Summary Date of Admission Sep 09, 2024 at 16:09 Date of Discharge: Sep 12, 2024 Admitting Diagnosis neck pain Labs/Diagnostic Data: Laboratory Results Test 09/12/24 05:59 09/11/24 04:54 09/11/24 00:37 09/09/24 18:46 POC Glucose 190 mg/dl (70-106) White Blood Count 6.0 10^3/uL (4.4-10.8) Red Blood Count 4.11 10^6/uL (4.0-5.20) Hemoglobin 12.9 g/dL (12.2-16.2) Hematocrit 37.3 % (36.0-46.0) Mean Corpuscular Volume 90.8 fL (80.0-100.0) Mean Corpuscular Hemoglobin 31.5 pg (28.0-32.0) Mean Corpuscular Hemoglobin Concent 34.7 g/dL (32.0-36.0) Red Cell Distribution Width 12.6 % (11.8-14.3) Platelet Count 180 10^3/uL (140-450) Mean Platelet Volume 7.9 fL (6.9-10.8) Neutrophils (%) (Auto) 76.3 % (37.0-80.0) Lymphocytes (%) (Auto) 11.2 % (10.0-50.0) Monocytes (%) (Auto) 11.9 % (0.0-12.0) Eosinophils (%) (Auto) 0.2 % (0.0-7.0) Basophils (%) (Auto) 0.4 % (0.0-2.0) Neutrophils # (Auto) 4.6 10 ^3/uL (1.6-8.6) Lymphocytes # (Auto) 0.7 10 ^3/uL (0.4-5.4) Monocytes # (Auto) 0.7 10 ^3/uL (0-1.3) Eosinophils # (Auto) 0 10 ^3/uL (0-0.8) Basophils # (Auto) 0 10 ^3/uL (0-0.2) Nucleated Red Blood Cells 0.1 % Sodium Level 136 mmol/L (136-145) Potassium Level 3.6 mmol/L (3.5-5.1) Chloride Level 103 mmol/L (98-107) Carbon Dioxide Level 21 mmol/L (20-31) Anion Gap 12 (5-15) Blood Urea Nitrogen 11 mg/dL (9-23) Creatinine 0.54 mg/dL (0.550-1.02) Glomerular Filtration Rate Calc 106 mL/min (>90) BUN/Creatinine Ratio 20.4 (10.0-20.0) Serum Glucose 189 mg/dL (74-106) Hemoglobin A1c 6.8 % A1C (<5.7) Calcium Level 8.6 mg/dL (8.7-10.4) Total Bilirubin 0.6 mg/dL (0.2-1.0) Aspartate Amino Transferase (AST) 17 U/L (<34) Alanine Aminotransferase (ALT) 16 U/L (7-40) Alkaline Phosphatase 87 U/L (46-116) Total Protein 6.2 g/dL (5.7-8.2) Albumin 3.8 g/dL (3.2-4.8) Urine Color Light-yellow (Yellow) Urine Clarity Clear (Clear) Urine pH 6.5 (5.0-9.0) Urine Specific [place] 1.022 (1.001-1.035) Urine Protein Negative (Negative) Urine Ketones Negative (Negative) Urine Blood Negative /uL (Negative) Urine Nitrite Negative (Negative) Urine Bilirubin Negative (Negative) Urine Urobilinogen Normal mg/dL (Negative) Urine Leukocyte Esterase Negative /uL (Negative) Urine RBC 8 /hpf (0 - 4) Urine Microscopic WBC 7 /HPF (0-5) Urine Squamous Epithelial Cells Few /hpf (<5) Urine Bacteria None seen /hpf (None Seen) Urine Glucose 4+ mg/dL (Normal) Influenza Type A Antigen Negative (Negative) Influenza Type B Antigen Negative (Negative) SARS-CoV-2 Antigen (Rapid) Negative (NEGATIVE) Test 09/09/24 12:45 Lactic Acid Level 2.0 mmol/L (0.4-2.0) Other Laboratory Tests 09/11/24 04:54 Brief Hx & Hospital Course: 09/10 patient continues to have neck pain. Continues to have dysuria. Today there is no CVA tenderness. She describes "convulsions", but there is no loss of consciousness. IP possible these are rigors/chills. No more febrile episodes. Chief complaint remains neck pain. We will ruled out cervical impingement. Continue antibiotics. Pending urine culture. 09/11 had another low-grade fever overnight. May need to advance antibiotics. Pending urine culture today. Currently on ceftriaxone. Neck pain is better with antispasmodic muscle relaxants, further proving this pain in the neck is likely musculoskeletal and CT cervical spine again without any fractures causing impingement. We will hold off any further imaging. Focused today is pyelonephritis pending urine culture. 09/12 - patient has been afebrile for > 24 hours while on ciprofloxacin. Urine culture is pending growing numerous colony GNR. Patient is feeling well, neck pain musculoskeletal is improving with muscle relaxants Flexeril. Patient stable for discharge as per plan below Diagnosis: Pyelonephritis Sepsis due to above Ruled out cervical spinal fractures or disc dislocation syndromes Tachypnea , resolved Tachycardia , resolved Febrile episodes , resolved Status post neck trauma Neck pain likely musculoskeletal Chills, resolved Discharge plan: - ciprofloxacin 500 mg twice daily for 5 days - Flexeril 10 mg nightly and p.r.n. during daytime, caution drowsiness, do not drive or operate machinery if taking during day - take azo 200 mg twice daily for 1 more day - follow up with PCP to review discharge Condition at Discharge: Fair Final Diagnosis/Problems List Pyelonephritis Sepsis due to above Ruled out cervical spinal fractures or disc dislocation syndromes Tachypnea , resolved Tachycardia , resolved Febrile episodes , resolved Status post neck trauma Neck pain likely musculoskeletal Chills, resolved Discharge Disposition: Home Discharge Statement: "Patient was advised to return to the ER or call 911 if any headaches, dizziness, shortness of breath, chest pain, abdominal pain, bleeding, fevers, or worsening of medical condition. Patient was counseled about treatment plan, medications, possible side effects, patientverbalized understanding. All questions were answered to the best of my ability. This discharge took greater then 30 minutes in planning, reviewing documentation, counseling the patient, and discussing with other team members." ASSESSMENT ASSESSMENT Assessment Date of Service: Sep 12, 2024 Billing Provider: LOVE ORO MD Common Visit Codes: NOT BILLABLE LOVE ORO MD Sep 12, 2024 10:36
[2024-09-12] MEDS ORDERED: PHEN-922 PO (10:39)
[2024-09-12] MEDS ORDERED: CIPR-173 PO (10:39)
[2024-09-12] MEDS ORDERED: CYCL-611 PO (10:39)
--- NOTE | 2024-09-12 17:03 | DVHPN2 ---
Subjective Patient continues to have neck pain as chief complaint. Dysuria is improving. Reviewed: H&P Changes from previous H/P or p: No Changes General: Per HPI Eyes: No Pain, No Vision change, No Conjunctivae inflammation, No Eyelid inflammation, No Other, No Redness ENT: No Ear pain, No Ear discharge, No Nose pain, No Nose discharge, No Nose congestion, No Mouth pain, No Mouth swelling, No Throat pain, No Throat swelling, No Other Cardiovascular: No Chest Pain, No Palpitations, No Orthopnea, No Paroxysmal Noc. Dyspnea, No Edema, No Lt Headedness, No Other Respiratory: No Cough, No Dry, No Shortness of breath, No SOB with excertion, No Wheezing, No Hemoptysis, No Pleuritic Pain, No Sputum, No Other Gastrointestinal: No Nausea, No Vomiting; Abdominal Pain; No Diarrhea, No Constipation, No Melena, No Hematochezia, No Other Genitourinary: Dysuria; No Frequency, No Incontinence, No Hematuria, No Retention, No Other Musculoskeletal: No other, No neck pain, No shoulder pain, No arm pain, No back pain, No hand pain, No leg pain, No foot pain Skin: No Rash, No Lesions, No Jaundice, No Bruising, No Other Objective Vitals Vital Signs Date Time Temp Pulse Resp B/P (MAP) Pulse Ox O2 Delivery O2 Flow Rate FiO2 09/12/24 16:42 97.9 63 17 107/59 (75) 96 97.9 09/12/24 08:00 Room Air* 0 21 Intake/Output Intake and Output 09/12/24 07:00 Intake Total 2208 ml Balance 2208 ml Intake Oral 1158 ml IV Total 1050 ml # Voids 9 Exam GEN: Healthy appearing, well-developed, NAD. HEENT: NC/AT; MMM. CV: RRR, no m/r/g. LUNGS: CTAB, no w/r/c. ABD: Soft, NT/ND, NBS, no masses or organomegaly. EXT: skin Warm, well perfused. no rashes. No clubbing, cyanosis, or edema. P araspinal tenderness in upper lumbar and cervical regions. No cervical impingement signs. NEURO: Ambulating with no limitations. No focal deficits. Medications Current Medications Medications Dose Ordered Sig/Stephon Route Start Time Stop Time Status Last Admin Dose Admin Lidocaine 1 patch DAILY TOP 09/10/24 10:00 09/12/24 09:15 1 PATCH Sodium Chloride 1,000 ml @ 120 mls/hr Q8H20M IV 09/09/24 16:15 09/12/24 09:17 120 MLS/HR Ondansetron HCl 4 mg Q4HP PRN IV 09/09/24 16:15 Docusate Sodium 100 mg BIDPRN PRN PO 09/09/24 16:15 Morphine Sulfate 2 mg Q4HPRN PRN IV 09/09/24 16:15 Nitroglycerin 0.4 mg Q5MINP PRN SL 09/09/24 16:15 Cyclobenzaprine HCl 10 mg HS PO 09/10/24 22:00 09/11/24 21:25 10 MG Diagnostic Test (Pha) 1 strip ACHS 09/10/24 22:00 09/12/24 11:30 1 STRIP Insulin Human Regular ACHS SC 09/10/24 22:00 09/12/24 12:51 3 UNITS Dextrose 50 ml PRN PRN IV 09/10/24 18:15 Phenazopyridine HCl 100 mg BID PO 09/11/24 23:00 09/12/24 09:16 100 MG Ertapenem 1 gm/ Sodium Chloride 50 ml @ 100 mls/hr DAILY IV 09/13/24 10:00 Laboratory Results Laboratory Tests 09/11/24 04:54 Urinalysis Test 09/11/24 00:37 Urine Color Light-yellow (Yellow) Urine Clarity Clear (Clear) Urine pH 6.5 (5.0-9.0) Urine Specific [place] 1.022 (1.001-1.035) Urine Protein Negative (Negative) Urine Ketones Negative (Negative) Urine Blood Negative /uL (Negative) Urine Nitrite Negative (Negative) Urine Bilirubin Negative (Negative) Urine Urobilinogen Normal mg/dL (Negative) Urine Leukocyte Esterase Negative /uL (Negative) Urine RBC 8 /hpf (0 - 4) Urine Microscopic WBC 7 /HPF (0-5) H Urine Squamous Epithelial Cells Few /hpf (<5) Urine Bacteria None seen /hpf (None Seen) Urine Glucose 4+ mg/dL (Normal) H Microbiology Microbiology Date/Time Source Procedure Growth Status 09/09/24 19:29 Voided Urine Urine Culture - Final Escherichia coli - ESBL Complete 09/09/24 12:45 Blood Blood Culture - Preliminary NO GROWTH AFTER 72 HOURS OF INCUBATION. Resulted Labs and/or images reviewed: Labs reviewed by me, Image(s) reviewed by me Assessment/Plan Assessment/Plan 09/10 patient continues to have neck pain. Continues to have dysuria. Today there is no CVA tenderness. She describes "convulsions", but there is no loss of consciousness. IP possible these are rigors/chills. No more febrile episodes. Chief complaint remains neck pain. We will ruled out cervical impingement. Continue antibiotics. Pending urine culture. 09/11 had another low-grade fever overnight. May need to advance antibiotics. Pending urine culture today. Currently on ceftriaxone. Neck pain is better with antispasmodic muscle relaxants, further proving this pain in the neck is likely musculoskeletal and CT cervical spine again without any fractures causing impingement. We will hold off any further imaging. Focused today is pyelonephritis pending urine culture. 09/12 - patient has been afebrile for > 24 hours while on ciprofloxacin. Urine culture is pending growing numerous colony GNR, comes to be ESBL Ecoli , very resistant, start ertapenem, stop ctx. . Patient is feeling well, neck pain musculoskeletal is improving with muscle relaxants Flexeril. order midline for 7 days ertapenem with HH . cbc cmp 1 week and midline removal with pcp. dx: Pyelonephritis Sepsis due to above Ruled out cervical spinal fractures or disc dislocation syndromes Tachypnea Tachycardia Febrile episodes Status post neck trauma Neck pain likely musculoskeletal Chills plan: -IV antibiotics -Trial muscle relaxants -Continue prn pain control and antipyretics - lidocaine patch p.r.n. -Invanz 1 g IV daily -Sliding scale insulin mild a.c. HS -Zofran for nausea prn -Azo 100 mg p.o. b.i.d. -Stopped ceftriaxone -diet regular DVT prophylaxis-ambulating GI prophylaxis tolerating p.o. Med surge Full code Plan discussed with: Patient My Orders Orders - LOVE ORO MD Procedure Category Date Status Time Insert Midline ORDERS 09/12/24 Transmitted 14:22 Ertapenem Sod Inj PHA 09/13/24 In Process (Invanz) 10:00 * Cardiothoracic Icu Rn CONS 09/12/24 Transmitted Consult Date of Service: Sep 12, 2024 Billing Provider: LOVE ORO MD Common Visit Codes: [id number] INP/OBS CARE(HIGH) LOVE ORO MD Sep 12, 2024 17:03
[2024-09-12] MEDS: ERTAPENEM SOD INJ 1 GM in SODIUM CHL 0.9% 50 ML IV ONE (18:13)
[2024-09-13] VITALS (8 sets, daily range): BP systolic 112–131; BP diastolic 60–75; PULSE 58–66; RESP 17–18; TEMP 97.8–98.8; O2SAT 96–99
--- NOTE | 2024-09-13 10:48 | DVHDS2 ---
Discharge Summary Date of Admission Sep 09, 2024 at 16:09 Date of Discharge: Sep 13, 2024 Labs/Diagnostic Data: Laboratory Results Test 09/13/24 05:54 09/11/24 04:54 09/11/24 00:37 09/09/24 18:46 POC Glucose 195 mg/dl (70-106) White Blood Count 6.0 10^3/uL (4.4-10.8) Red Blood Count 4.11 10^6/uL (4.0-5.20) Hemoglobin 12.9 g/dL (12.2-16.2) Hematocrit 37.3 % (36.0-46.0) Mean Corpuscular Volume 90.8 fL (80.0-100.0) Mean Corpuscular Hemoglobin 31.5 pg (28.0-32.0) Mean Corpuscular Hemoglobin Concent 34.7 g/dL (32.0-36.0) Red Cell Distribution Width 12.6 % (11.8-14.3) Platelet Count 180 10^3/uL (140-450) Mean Platelet Volume 7.9 fL (6.9-10.8) Neutrophils (%) (Auto) 76.3 % (37.0-80.0) Lymphocytes (%) (Auto) 11.2 % (10.0-50.0) Monocytes (%) (Auto) 11.9 % (0.0-12.0) Eosinophils (%) (Auto) 0.2 % (0.0-7.0) Basophils (%) (Auto) 0.4 % (0.0-2.0) Neutrophils # (Auto) 4.6 10 ^3/uL (1.6-8.6) Lymphocytes # (Auto) 0.7 10 ^3/uL (0.4-5.4) Monocytes # (Auto) 0.7 10 ^3/uL (0-1.3) Eosinophils # (Auto) 0 10 ^3/uL (0-0.8) Basophils # (Auto) 0 10 ^3/uL (0-0.2) Nucleated Red Blood Cells 0.1 % Sodium Level 136 mmol/L (136-145) Potassium Level 3.6 mmol/L (3.5-5.1) Chloride Level 103 mmol/L (98-107) Carbon Dioxide Level 21 mmol/L (20-31) Anion Gap 12 (5-15) Blood Urea Nitrogen 11 mg/dL (9-23) Creatinine 0.54 mg/dL (0.550-1.02) Glomerular Filtration Rate Calc 106 mL/min (>90) BUN/Creatinine Ratio 20.4 (10.0-20.0) Serum Glucose 189 mg/dL (74-106) Hemoglobin A1c 6.8 % A1C (<5.7) Calcium Level 8.6 mg/dL (8.7-10.4) Total Bilirubin 0.6 mg/dL (0.2-1.0) Aspartate Amino Transferase (AST) 17 U/L (<34) Alanine Aminotransferase (ALT) 16 U/L (7-40) Alkaline Phosphatase 87 U/L (46-116) Total Protein 6.2 g/dL (5.7-8.2) Albumin 3.8 g/dL (3.2-4.8) Urine Color Light-yellow (Yellow) Urine Clarity Clear (Clear) Urine pH 6.5 (5.0-9.0) Urine Specific [place] 1.022 (1.001-1.035) Urine Protein Negative (Negative) Urine Ketones Negative (Negative) Urine Blood Negative /uL (Negative) Urine Nitrite Negative (Negative) Urine Bilirubin Negative (Negative) Urine Urobilinogen Normal mg/dL (Negative) Urine Leukocyte Esterase Negative /uL (Negative) Urine RBC 8 /hpf (0 - 4) Urine Microscopic WBC 7 /HPF (0-5) Urine Squamous Epithelial Cells Few /hpf (<5) Urine Bacteria None seen /hpf (None Seen) Urine Glucose 4+ mg/dL (Normal) Influenza Type A Antigen Negative (Negative) Influenza Type B Antigen Negative (Negative) SARS-CoV-2 Antigen (Rapid) Negative (NEGATIVE) Test 09/09/24 12:45 Lactic Acid Level 2.0 mmol/L (0.4-2.0) Other Laboratory Tests 09/11/24 04:54 Brief Hx & Hospital Course: 09/10 patient continues to have neck pain. Continues to have dysuria. Today there is no CVA tenderness. She describes "convulsions", but there is no loss of consciousness. IP possible these are rigors/chills. No more febrile episodes. Chief complaint remains neck pain. We will ruled out cervical impingement. Continue antibiotics. Pending urine culture. 09/11 had another low-grade fever overnight. May need to advance antibiotics. Pending urine culture today. Currently on ceftriaxone. Neck pain is better with antispasmodic muscle relaxants, further proving this pain in the neck is likely musculoskeletal and CT cervical spine again without any fractures causing impingement. We will hold off any further imaging. Focused today is pyelonephritis pending urine culture. 09/12 - patient has been afebrile for > 24 hours while on ciprofloxacin. Urine culture is pending growing numerous colony GNR, comes to be ESBL Ecoli , very resistant, start ertapenem, stop ctx. . Patient is feeling well, neck pain musculoskeletal is improving with muscle relaxants Flexeril. order midline for 7 days ertapenem with HH . cbc cmp 1 week and midline removal with pcp. 09/13- patient remains afebrile, midline insertion today, social sitting up ertapenem for home IV infusion, home health to follow. Patient stable and ready for discharge as per plan below. Discharge diagnosis: Pyelonephritis Sepsis due to above Resistant organism UTI, ESBL Ruled out cervical spinal fractures or disc dislocation syndromes Tachypnea , resolved Tachycardia , resolved Febrile episodes , resolved Status post neck trauma Neck pain likely musculoskeletal Chills, resolved Discharge plan: - seven days ertapenem 1 g IV daily, for 7 days, home health to aid - CBC CMP in 1 week with home Health, fax to PCP -PCP follow up within 1 week after completion of IV antibiotics, PCP to remove midline and follow up on disease resolution - no further need for azo, stop azo. - can take trial of nightly Flexeril for neck musculoskeletal pain from recent trauma/fall -can try cranberry juice to trial for dysuria. - can continue other home medications not mentioned above. Condition at Discharge: Fair Final Diagnosis/Problems List Pyelonephritis Sepsis due to above Resistant organism UTI, ESBL Ruled out cervical spinal fractures or disc dislocation syndromes Tachypnea , resolved Tachycardia , resolved Febrile episodes , resolved Status post neck trauma Neck pain likely musculoskeletal Chills, resolved Discharge Disposition: Home Discharge Statement: "Patient was advised to return to the ER or call 911 if any headaches, dizziness, shortness of breath, chest pain, abdominal pain, bleeding, fevers, or worsening of medical condition. Patient was counseled about treatment plan, medications, possible side effects, patientverbalized understanding. All questions were answered to the best of my ability. This discharge took greater then 30 minutes in planning, reviewing documentation, counseling the patient, and discussing with other team members." ASSESSMENT ASSESSMENT Assessment Pyelonephritis Sepsis due to above Ruled out cervical spinal fractures or disc dislocation syndromesTachypnea , resolvedTachycardia , resolvedFebrile episodes , resolvedStatus post neck trauma Neck pain likely musculoskeletal Chills, resolved Date of Service: Sep 13, 2024 Billing Provider: LOVE ORO MD Common Visit Codes: 83953-HWL/OBS DISCH DAY >30min LOVE ORO MD Sep 13, 2024 10:48
[2024-09-13] MEDS: ERTAPENEM SOD INJ 1 GM in SODIUM CHL 0.9% 50 ML IV SCH (12:05)
[2024-09-13] MEDS: ACETAMINOPHEN 325 MG TAB PO PRN (15:09)
[2024-09-13] MEDS: PROCHLORPERAZINE EDISYLATE 5 MG/ML 2ML VIAL IM ONE (15:13)
[2024-09-14 00:57] VITALS: BP 122/76; PULSE 62; RESP 18; TEMP 98.4; O2SAT 99
[2024-09-14 05:00] VITALS: BP 117/61; PULSE 60; RESP 18; TEMP 98.8; O2SAT 97
[2024-09-14 08:25] VITALS: PULSE 65; RESP 16; O2SAT 97
[2024-09-14 09:00] VITALS: BP 118/72; PULSE 65; RESP 16; TEMP 98; O2SAT 97
[2024-09-14 14:09] VITALS: BP 119/72; PULSE 67; RESP 16; TEMP 36.7; O2SAT 94
--- NOTE | 2024-09-14 16:02 | DVHPN2 ---
Subjective Patient continues to have neck pain as chief complaint. Dysuria is improving. Reviewed: H&P Changes from previous H/P or p: No Changes General: Per HPI Eyes: No Pain, No Vision change, No Conjunctivae inflammation, No Eyelid inflammation, No Other, No Redness ENT: No Ear pain, No Ear discharge, No Nose pain, No Nose discharge, No Nose congestion, No Mouth pain, No Mouth swelling, No Throat pain, No Throat swelling, No Other Cardiovascular: No Chest Pain, No Palpitations, No Orthopnea, No Paroxysmal Noc. Dyspnea, No Edema, No Lt Headedness, No Other Respiratory: No Cough, No Dry, No Shortness of breath, No SOB with excertion, No Wheezing, No Hemoptysis, No Pleuritic Pain, No Sputum, No Other Gastrointestinal: No Nausea, No Vomiting; Abdominal Pain; No Diarrhea, No Constipation, No Melena, No Hematochezia, No Other Genitourinary: Dysuria; No Frequency, No Incontinence, No Hematuria, No Retention, No Other Musculoskeletal: No other, No neck pain, No shoulder pain, No arm pain, No back pain, No hand pain, No leg pain, No foot pain Skin: No Rash, No Lesions, No Jaundice, No Bruising, No Other Objective Vitals Vital Signs Date Time Temp Pulse Resp B/P (MAP) Pulse Ox O2 Delivery O2 Flow Rate FiO2 09/14/24 14:09 36.7 67 16 94 09/14/24 09:00 118/72 (87) 09/14/24 08:25 Room Air* 0 21 Intake/Output Intake and Output 09/14/24 07:00 Intake Total 810 ml Balance 810 ml Intake Oral 760 ml IV Total 50 ml # Voids 3 # Bowel Movements 1 Exam GEN: Healthy appearing, well-developed, NAD. HEENT: NC/AT; MMM. CV: RRR, no m/r/g. LUNGS: CTAB, no w/r/c. ABD: Soft, NT/ND, NBS, no masses or organomegaly. EXT: skin Warm, well perfused. no rashes. No clubbing, cyanosis, or edema. P araspinal tenderness in upper lumbar and cervical regions. No cervical impingement signs. NEURO: Ambulating with no limitations. No focal deficits. Laboratory Results Laboratory Tests 09/11/24 04:54 Urinalysis Test 09/11/24 00:37 Urine Color Light-yellow (Yellow) Urine Clarity Clear (Clear) Urine pH 6.5 (5.0-9.0) Urine Specific [place] 1.022 (1.001-1.035) Urine Protein Negative (Negative) Urine Ketones Negative (Negative) Urine Blood Negative /uL (Negative) Urine Nitrite Negative (Negative) Urine Bilirubin Negative (Negative) Urine Urobilinogen Normal mg/dL (Negative) Urine Leukocyte Esterase Negative /uL (Negative) Urine RBC 8 /hpf (0 - 4) Urine Microscopic WBC 7 /HPF (0-5) H Urine Squamous Epithelial Cells Few /hpf (<5) Urine Bacteria None seen /hpf (None Seen) Urine Glucose 4+ mg/dL (Normal) H Microbiology Microbiology Date/Time Source Procedure Growth Status 09/09/24 19:29 Voided Urine Urine Culture - Final Escherichia coli - ESBL Complete 09/09/24 12:45 Blood Blood Culture - Final NO GROWTH AFTER 5 DAYS OF INCUBATION. Complete Labs and/or images reviewed: Labs reviewed by me, Image(s) reviewed by me Assessment/Plan Assessment/Plan 09/10 patient continues to have neck pain. Continues to have dysuria. Today there is no CVA tenderness. She describes "convulsions", but there is no loss of consciousness. IP possible these are rigors/chills. No more febrile episodes. Chief complaint remains neck pain. We will ruled out cervical impingement. Continue antibiotics. Pending urine culture. 09/11 had another low-grade fever overnight. May need to advance antibiotics. Pending urine culture today. Currently on ceftriaxone. Neck pain is better with antispasmodic muscle relaxants, further proving this pain in the neck is likely musculoskeletal and CT cervical spine again without any fractures causing impingement. We will hold off any further imaging. Focused today is pyelonephritis pending urine culture. 09/12 - patient has been afebrile for > 24 hours while on ciprofloxacin. Urine culture is pending growing numerous colony GNR, comes to be ESBL Ecoli , very resistant, start ertapenem, stop ctx. . Patient is feeling well, neck pain musculoskeletal is improving with muscle relaxants Flexeril. order midline for 7 days ertapenem with HH . cbc cmp 1 week and midline removal with pcp. 09/13- patient remains afebrile, midline insertion today, social sitting up ertapenem for home IV infusion, home health to follow. Patient stable and ready for discharge as per plan below. 09/14 - patient discharge plan was developed yesterday patient was unable to go home as antibiotics for not been arranged. Antibiotics are arranged today patient will go home. She feels well. And is aware of plan as per discharge note from yesterday 09/13/2024. dx: Pyelonephritis Sepsis due to above Resistant organism UTI, ESBL Ruled out cervical spinal fractures or disc dislocation syndromes Tachypnea , resolved Tachycardia , resolved Febrile episodes , resolved Status post neck trauma Neck pain likely musculoskeletal Chills, resolved plan: -IV antibiotics -Trial muscle relaxants -Continue prn pain control and antipyretics - lidocaine patch p.r.n. -Invanz 1 g IV daily -Sliding scale insulin mild a.c. HS -Zofran for nausea prn -Azo 100 mg p.o. b.i.d. -Stopped ceftriaxone -diet regular DVT prophylaxis-ambulating GI prophylaxis tolerating p.o. Med surge Full code Plan discussed with: Patient Date of Service: Sep 14, 2024 Billing Provider: LOVE ORO MD Common Visit Codes: [id number] INP/OBS CARE(MOD) LOVE ORO MD Sep 14, 2024 16:02
== END 2024-09-14 15:15 | disposition home health service (06) | DRG 872 ==
LOC: EDBD 12:21 → ER 12:27 → OVERFLOW 16:09 → WEST WING 22:52
PROVIDERS: ADMIT Student in an Organized Health Care Education/Training Program; ATTEND Student in an Organized Health Care Education/Training Program
DX: A41.9 Sepsis, unspecified organism (principal); N10 Acute pyelonephritis; Z16.12 Extended spectrum beta lactamase (ESBL) resistance; E86.0 Dehydration; E11.9 Type 2 diabetes mellitus without complications; M54.2 Cervicalgia; Z20.822 Contact with and (suspected) exposure to COVID-19; E78.5 Hyperlipidemia, unspecified
CPT/HCPCS: 36415; 72125; 74176; 80048; 80053; 81001; 82962; 83036; 83605; 85025; 87040; 87086; 87088; 87186; 87426; 87804; 96361; 96365; G0378; J1335; J1815